=== PATIENT | male | born 1990 | race Two or more races ===

== ENCOUNTER 2021-06-01 16:22 | Emergency (ER) | payer MEDICAID ==
[~2021-06-01] VITALS: Ht 162.6 cm; Wt 64.9 kg
--- NOTE | 2021-06-01 16:40 | NUR ---
PT BIBA FOR ETOH WITHDRAWL. AT BEDSIDE. PT A/O X1 AND VISUALLY SHAKING.
[2021-06-01] MEDS ORDERED: IV NS 0.9% 1,000 ML BAG IV ONE (17:00)
[2021-06-01] MEDS ORDERED: LORAZEPAM 1 MG TABLET PO ONE (17:00)
[2021-06-01] MEDS ORDERED: ONDANSETRON HCL/PF 4 MG/2 ML VIAL IVP ONE (17:00)
--- NOTE | 2021-06-01 17:12 | NUR ---
THE PATIENT IS TAKEN TO CT VIA RNEY
[2021-06-01 17:13] LABS: BASOPHILS % (AUTO) 0.9 % (0.0-2.0); EOSINOPHILS % (AUTO) 0.2 % (0.0-6.0); HEMATOCRIT 39 % (39-51); HEMOGLOBIN 13.1 g/dL (13.5-17.5); LYMPHOCYTES # (AUTO) 0.2 K/uL (0.8-4.8); LYMPHOCYTES % (AUTO) 5.4 % (20.0-44.0); MEAN CORPUSCULAR HGB CONC 34 g/dl (31.0-36.0); MEAN CORPUSCULAR VOLUME 100 fL (80-96); MONOCYTES # (AUTO) 0.2 K/uL (0.1-1.30); MONOCYTES % (AUTO) 7.3 % (2.0-12.0); NEUTROPHILS # (AUTO) 2.6 K/uL (1.8-8.9); NEUTROPHILS % (AUTO) 86.2 % (43.0-81.0); PLATELET COUNT (AUTO) 112 K/uL (150-450); RED BLOOD CELL COUNT(AUTO) 3.92 MIL/uL (4.5-6.0)
--- NOTE | 2021-06-01 17:20 | NUR ---
R AC #18G PLACED. TOLERTATING 1L NS
[2021-06-01 17:27] LABS: ALBUMIN 4.6 g/dL (3.4-5.0); BILIRUBIN,DIRECT 0.3 mg/dL (0.0-0.2); BILIRUBIN,TOTAL 0.8 mg/dL (0.2-1.0); CALCIUM, SERUM 9.9 mg/dL (8.5-10.1); CREATININE 0.9 mg/dL (0.6-1.3); POTASSIUM 3.7 mmol/L (3.5-5.1); TOTAL PROTEIN, SERUM 9.1 g/dL (6.4-8.2)
[2021-06-01] MEDS ORDERED: ONDANSETRON HCL/PF 4 MG/2 ML VIAL ONE (17:28)
[2021-06-01] MEDS ORDERED: LORAZEPAM 1 MG TABLET ONE (17:29)
[2021-06-01] MEDS ORDERED: CHLORDIAZEPOXIDE HCL 25 MG CAPSULE ONE (18:12)
[2021-06-01] MEDS ORDERED: CHLORDIAZEPOXIDE HCL 25 MG CAPSULE PO ONE (18:30)
--- NOTE | 2021-06-01 18:34 | NUR ---
CELINE GALINDO (BROTHER) [phone].
[2021-06-01] MEDS ORDERED: CHLO25CA22 PO (19:16)
--- NOTE | 2021-06-01 19:20 | NUR ---
IV removed. Catheter intact and site benign. Pressure and 4x4 applied to site. No bleeding noted.
--- NOTE | 2021-06-01 19:30 | NUR ---
Patient discharged to home in stable condition. Written and verbal after care instructions given. Patient verbalizes understanding of instruction.
[2021-06-01 20:17] VITALS: BP 150/118
== END 2021-06-01 19:30 | disposition home or self-care (01) ==
LOC: ER 16:27
DX: F10.239 Alcohol dependence with withdrawal, unspecified (principal); R56.9 Unspecified convulsions; Y90.0 Blood alcohol level of less than 20 mg/100 ml
CPT/HCPCS: 36415; 70450; 71045; 80048; 80076; 80320; 85025; 96361; 96374; 99285; J2405; J7030; G0480